=== PATIENT | female | born 1990 | race Two or more races ===

== ENCOUNTER 2024-08-14 09:18 | Outpatient (CLI) | payer OTHER | END 2024-08-14 09:19 | disposition home or self-care (01) | LOC: PRENATAL 09:18 | PROVIDERS: ATTEND Obstetrics & Gynecology Maternal & Fetal Medicine | DX: O36.80X0 Pregnancy with inconclusive fetal viability, not applicable or unspecified (principal); Z36.82 Encounter for antenatal screening for nuchal translucency; Z36.9 Encounter for antenatal screening, unspecified; Z14.8 Genetic carrier of other disease; Z3A.12 12 weeks gestation of pregnancy ==

== ENCOUNTER → 2024-10-08 09:36 | Outpatient (CLI) | payer OTHER | END | disposition home or self-care (01) | LOC: PRENATAL 09:36 | PROVIDERS: ATTEND Obstetrics & Gynecology Maternal & Fetal Medicine | DX: O35.3XX0 Maternal care for (suspected) damage to fetus from viral disease in mother, not applicable or unspecified (principal); O44.00 Complete placenta previa NOS or without hemorrhage, unspecified trimester; Z3A.20 20 weeks gestation of pregnancy ==

== ENCOUNTER 2024-11-19 10:11 | Outpatient (CLI) | payer OTHER | END 2024-11-19 10:12 | disposition home or self-care (01) | LOC: PRENATAL 10:11 | PROVIDERS: ATTEND Obstetrics & Gynecology Maternal & Fetal Medicine | DX: O26.849 Uterine size-date discrepancy, unspecified trimester (principal); Z3A.25 25 weeks gestation of pregnancy ==

== ENCOUNTER 2025-01-14 10:25 | Outpatient (CLI) | payer OTHER | END 2025-01-14 10:35 | disposition home or self-care (01) | LOC: PRENATAL 10:25 | PROVIDERS: ATTEND Obstetrics & Gynecology Maternal & Fetal Medicine | DX: O26.849 Uterine size-date discrepancy, unspecified trimester (principal); O36.8199 Decreased fetal movements, unspecified trimester, other fetus; Z3A.34 34 weeks gestation of pregnancy ==

== ENCOUNTER 2025-02-09 13:26 | Inpatient (IN) | payer OTHER ==
[~2025-02-09] VITALS: Ht 162.6 cm; Wt 99.8 kg
[2025-02-09 14:43] LABS: PH,URINE 5.5 (5.0-8.0); URINE APPEARANCE Cloudy; URINE BILIRRUBIN Negative (NEGATIVE); URINE BLOOD Negative; URINE COLOR Yellow; URINE GLUCOSE Negative (NEGATIVE); URINE KETONE Trace (NEGATIVE); URINE LEUKOCYTE Large; URINE NITRATE Negative; URINE PROTEIN Trace (NEGATIVE); URINE UROBILINOGEN 0.2 E.U./dl
[2025-02-09 14:43] LABS: HEMATOCRIT 35.5 % (36.0-45.00); HEMOGLOBIN 11.3 g/dL (12.0-15.00); MEAN CELL VOLUME 82.4 fL (80.00-100.00); MEAN CORPUSCULAR HEMOGLOBIN 26.1 pg (27.00-32.0); MEAN CORPUSCULAR HGB CONC 31.7 g/dl (32.0-36.0); PLATELET COUNT 235 K/uL (150-450); RED BLOOD COUNT 4.31 M/uL (4.00-6.00); RED CELL DISTRIBUTION WIDTH 14.6 % (11.5-14.5)
[2025-02-09 14:46] LABS: URINE EPITHELIAL CELLS 128.4 uL (0.0-38.8); URINE RBC 6.1 uL (0.0-20.8); URINE WBC 422.7 uL (0.0-23.2)
[2025-02-09 15:09] LABS: INR 0.94; PARTIAL THROMBOPLASTIN TIME 22.7 SECONDS (22.0-34.0); PROTHROMBIN TIME 10.3 SECONDS (9.0-11.5)
[2025-02-09 15:23] LABS: URINE BACTERIA > 9821.5 uL (0.0-1933); URINE CAST 0.73 uL (0.0-1.40)
[2025-02-09 15:32] LABS: ALBUMIN 2.6 gm/dL (3.4-5.0); BILIRUBIN TOTAL 0.4 mg/dL (0.3-1.2); CALCIUM 9.5 mg/dL (8.5-10.1); CREATININE SERUM 0.52 mg/dL (0.55-1.02); GFR 135.8; GLOBULINA 4.1 G/DL (2.4-3.5); POTASSIUM 4.19 mEq/L (3.5-5.1); TOTAL PROTEIN 6.7 gm/dL (6.4-8.2)
[2025-02-22] MEDS ORDERED: RINGERS SOLUTION,LACTATED 1,000 ML IV SCH (06:45)
[2025-02-22 08:05] VITALS: BP 116/77
[2025-02-22] MEDS ORDERED: OXYTOCIN 10 UNITS/ML VIAL ONE (09:58)
[2025-02-22] MEDS ORDERED: ERYTHROMYCIN BASE OPHT 1GM EACH TUBE OP ONE (09:59)
[2025-02-22 10:19] VITALS: BP 116/77
[2025-02-22] MEDS ORDERED: MISOPROSTOL 25 MCG/4 ML GEL.W.APPL ONE (11:29)
[2025-02-22 11:40] VITALS: BP 134/81
[2025-02-22] MEDS ORDERED: MISOPROSTOL 25 MCG/4 ML GEL.W.APPL VAG ONE ×3 (11:45→21:30)
[2025-02-22] MEDS ORDERED: PRENATABS FA T1 EACH PO (14:27)
[2025-02-22 15:20] VITALS: BP 106/59
[2025-02-22 20:41] VITALS: BP 128/83
[2025-02-22 23:40] VITALS: BP 119/83
[2025-02-23] VITALS (11 sets, daily range): BP systolic 117–155; BP diastolic 66–106
[2025-02-23] MEDS ORDERED: MISOPROSTOL 25 MCG/4 ML GEL.W.APPL ONE (10:54)
[2025-02-23] MEDS ORDERED: MISOPROSTOL 25 MCG/4 ML GEL.W.APPL VAG ONE (11:15)
[2025-02-23] MEDS ORDERED: MORPHINE SULFATE 4 MG/ML CARTRIDGE IV ONE (14:30)
[2025-02-23] MEDS ORDERED: OXYTOCIN 500 ML IV SCH (15:15)
[2025-02-23] MEDS ORDERED: OXYTOCIN 20 UNITS/1000ML RL PIGGYBAG IV ONE (20:23)
[2025-02-23] MEDS ORDERED: CHLORHEXIDINE GLUCONATE 120 ML BOTTLE TOP ONE (20:23)
[2025-02-23] MEDS ORDERED: ERYTHROMYCIN BASE OPHT 1GM EACH TUBE OP ONE ×2 (20:23→22:30)
[2025-02-23] MEDS ORDERED: LIDOCAINE HCL 1% 10ML VIAL ONE (20:24)
[2025-02-23] MEDS ORDERED: BENZOCAINE/MENTHOL 90 ML BOTTLE TOP PRN (22:30)
[2025-02-23] MEDS ORDERED: CHLORHEXIDINE GLUCONATE 120 ML BOTTLE TP SCH (22:30)
[2025-02-23] MEDS ORDERED: LIDOCAINE HCL 1% 10ML VIAL IJ ONE (22:30)
[2025-02-23] MEDS ORDERED: OXYTOCIN 1,000 ML IV SCH (22:30)
[2025-02-23] MEDS ORDERED: ACETAMINOPHEN 500 MG GEL..CAP PO PRN (22:30)
[2025-02-24 01:26] VITALS: BP 107/70
[2025-02-24 07:30] VITALS: BP 99/69
[2025-02-24 08:57] LABS: HEMATOCRIT 27.1 % (36.0-45.00); MEAN CELL VOLUME 82.1 fL (80.00-100.00); PLATELET COUNT 226 K/uL (150-450); RED CELL DISTRIBUTION WIDTH 15.1 % (11.5-14.5)
[2025-02-24] MEDS ORDERED: PNV,CALCIUM 72/IRON/FOLIC ACID 1 TAB TABLET PO SCH (09:00)
[2025-02-24 09:02] LABS: HEMOGLOBIN 8.9 g/dL (12.0-15.00); MEAN CORPUSCULAR HEMOGLOBIN 26.9 pg (27.00-32.0)
[2025-02-24] MEDS ORDERED: IRON FUM,PS/FOLIC/BCOMP,C NO.9 1 CAP CAPSULE PO SCH (09:26)
[2025-02-24 16:11] VITALS: BP 116/72
[2025-02-24 23:40] VITALS: BP 119/73
[2025-02-25 08:36] VITALS: BP 130/86
== END 2025-02-25 10:01 | disposition home or self-care (01) | DRG 807 ==
LOC: LDR 02-22 06:30 → OB/GYN 02-23 22:19 → LDR 02-26 13:20
PROVIDERS: Obstetrics & Gynecology; ADMIT Obstetrics & Gynecology; ATTEND Obstetrics & Gynecology
PROC: 0W8NXZZ Division of Female Perineum, External Approach (ICD-10-PCS; 2025-02-22)
PROC: 4A1HXCZ Monitoring of Products of Conception, Cardiac Rate, External Approach (ICD-10-PCS; 2025-02-22)
PROC: 3E0P7VZ Introduction of Hormone into Female Reproductive, Via Natural or Artificial Opening (ICD-10-PCS; 2025-02-22)
PROC: 10E0XZZ Delivery of Products of Conception, External Approach (ICD-10-PCS; principal; 2025-02-23)
PROC: 3E033VJ Introduction of Other Hormone into Peripheral Vein, Percutaneous Approach (ICD-10-PCS; 2025-02-23)
DX: O10.02 Pre-existing essential hypertension complicating childbirth (principal); Z37.0 Single live birth; O24.420 Gestational diabetes mellitus in childbirth, diet controlled; Z3A.39 39 weeks gestation of pregnancy